=== PATIENT | female | born 1995 | race Hispanic/Latino ===

== ENCOUNTER 2022-08-06 19:08 | Emergency (ER) | payer OTHER, BC ==
[2022-08-06 21:02] LABS: Pregnancy Test - Urine (BHCG) Negative (Negative); Pregu Control Background? CLEAR/WHITE (CLR/WHITE); Pregu Control Bar Appear? YES (CONTROL BAR)
== END 2022-08-06 22:34 | disposition home or self-care (01) ==
LOC: CSHERS 19:08
DX: S80.02XA Contusion of left knee, initial encounter (principal); S60.212A Contusion of left wrist, initial encounter; S60.211A Contusion of right wrist, initial encounter; V43.52XA Car driver injured in collision with other type car in traffic accident, initial encounter; Y92.410 Unspecified street and highway as the place of occurrence of the external cause
CPT/HCPCS: 70450; 71260; 74177; 81025

== ENCOUNTER 2024-03-22 04:44 | Emergency (ER) | payer BC ==
[2024-03-22] MEDS ORDERED: Dexamethasone 10 MG/ML VIAL ONE (04:57)
[2024-03-22] MEDS ORDERED: Methocarbamol 500 MG TAB ONE (04:58)
== END 2024-03-22 05:20 | disposition home or self-care (01) ==
LOC: CSHERS 04:44
DX: M54.2 Cervicalgia (principal); M62.838 Other muscle spasm
CPT/HCPCS: 96372; 99283; J1100